=== PATIENT | female | born 1960 | race Hispanic/Latino ===

== ENCOUNTER 2017-06-10 12:49 | Outpatient (CLI) | payer BC ==
--- NOTE | 2017-06-10 13:25 | Mammography Report ---
Bilateral mammogram: Compared to 03/12/16. CAD study utilized. Findings: Predominance of adipose tissue bilaterally. Benign calcification right breast. Benign density left breast. Benign axillary nodes Impression: Benign findings. Annual followup recommended. BI-RADS CATEGORY: 2 = Benign ACR BI-RADS MAMMOGRAPHIC CODES: 0 = Needs additional imaging evaluation; 1 = Negative; 2 = Benign; 3 = Probably benign; 4 = Suspicious; 5 = Malignant; 6 = Known biopsy-proven malignancy COMMENT: 1. Dense breast tissue, i.e., adenosis, fibrocystic changes, etc., may obscure an underlying neoplasm. 2. Approximately 10% of cancers are not detected with mammography. 3. A negative mammography report should not delay biopsy if a clinically suspicious mass is present. BI-RADS CATEGORY: 2 = Benign ACR BI-RADS MAMMOGRAPHIC CODES: 0 = Needs additional imaging evaluation; 1 = Negative; 2 = Benign; 3 = Probably benign; 4 = Suspicious; 5 = Malignant; 6 = Known biopsy-proven malignancy COMMENT: 1. Dense breast tissue, i.e., adenosis, fibrocystic changes, etc., may obscure an underlying neoplasm. 2. Approximately 10% of cancers are not detected with mammography. 3. A negative mammography report should not delay biopsy if a clinically suspicious mass is present.
== END 2017-06-10 12:50 | disposition home or self-care (01) ==
LOC: MAMMO 12:49
PROVIDERS: ATTEND Family Medicine
DX: Z12.31 Encounter for screening mammogram for malignant neoplasm of breast (principal); I10 Essential (primary) hypertension; E03.9 Hypothyroidism, unspecified; F32.9 Major depressive disorder, single episode, unspecified
CPT/HCPCS: 77067; G0202

== ENCOUNTER 2019-03-17 08:29 | Outpatient (CLI) | payer BC ==
--- NOTE | 2019-03-18 09:48 | Fluoroscopy Report ---
UPPER GI SERIES WITH AIR-CONTRAST HISTORY: Epigastric pain, difficulty swallowing, lap band placement approximately 5-6 years ago. COMPARISON: No relevant comparisons at this facility. FINDINGS: Wireless Sales Manager film of the abdomen demonstrates an unremarkable intestinal gas pattern. Cholecystectomy changes are noted. A LAP band is identified in the left upper quadrant which appears in good position with phi angle measuring approximately 50 degrees. 72 fluoroscopic images were captured during this exam. Deglutition was normal. No evidence for aspiration. The esophagus was mildly dilated throughout this examination. There is no evidence for esophageal mass, stricture or mucosal defect. Delayed esophageal emptying was also noted throughout this exam. There appears to be slow transit of the oral contrast across the lap band device. No obvious slippage of the lap band is appreciated. There is eventual filling of the gastric cavity and proximal small bowel loops which are unremarkable. No gastric mass or mucosal defect. The duodenal bulb and duodenal sweep are unremarkable. IMPRESSION: In my opinion, the lap band appears to be too tight. The esophagus was mildly dilated throughout this exam with delayed emptying. No obvious LAP band slippage is appreciated.
== END 2019-03-17 08:30 | disposition home or self-care (01) ==
LOC: FLUORO 08:29
PROVIDERS: ATTEND Specialist
DX: K21.9 Gastro-esophageal reflux disease without esophagitis (principal); K30 Functional dyspepsia; I10 Essential (primary) hypertension; M19.90 Unspecified osteoarthritis, unspecified site; E03.9 Hypothyroidism, unspecified
CPT/HCPCS: 74247

== ENCOUNTER 2019-03-25 12:14 | Outpatient (CLI) | payer BC ==
[2019-03-25 12:37] LABS: Hematocrit 36.8 % (30.3-42.9); Hemoglobin 12.5 gm/dl (10.1-14.3); Mean Corpuscular HGB Conc 34 % (30-34); Mean Corpuscular Volume 84 fl (79-97); Platelet Count 265 K/mm3 (140-440); Red Blood Count 4.37 M/mm3 (3.65-5.03); Red Cell Distribution Width 14.8 % (13.2-15.2)
[2019-03-25 12:55] LABS: Alanine Aminotransferase 22 units/L (7-56); Albumin 4.5 g/dL (3.9-5); BUN/Creatinine Ratio 16; Blood Urea Nitrogen 13 mg/dL (7-17); Calcium 9.3 mg/dL (8.4-10.2); Chol/HDL Ratio 3.62 %; HDL Cholesterol 66 mg/dL (40-59); Hemolysis Index 3; LDL Cholesterol,Direct 186 mg/dL (50-130)
[2019-03-25 13:50] LABS: Free T4 (Free Thyroxine) 1.15 ng/dL (0.76-1.46)
== END 2019-03-25 12:15 | disposition home or self-care (01) ==
LOC: LAB 12:14
PROVIDERS: ATTEND Nurse Practitioner Family
DX: Z01.818 Encounter for other preprocedural examination (principal); K21.9 Gastro-esophageal reflux disease without esophagitis; E03.9 Hypothyroidism, unspecified; Z90.710 Acquired absence of both cervix and uterus
CPT/HCPCS: 36415; 80053; 80061; 84439; 84443; 85027

== ENCOUNTER → 2019-04-01 | Outpatient (CLI) | payer BC | END | disposition home or self-care (01) | LOC: SLR 11:00 | PROVIDERS: ATTEND Otolaryngology | DX: G47.33 Obstructive sleep apnea (adult) (pediatric) (principal); R40.0 Somnolence; R06.83 Snoring; I10 Essential (primary) hypertension; K21.9 Gastro-esophageal reflux disease without esophagitis; E03.9 Hypothyroidism, unspecified; Z90.710 Acquired absence of both cervix and uterus | CPT/HCPCS: 95810 ==

== ENCOUNTER → 2019-04-15 | Outpatient (CLI) | payer BC | END | disposition home or self-care (01) | LOC: SLR 11:00 | PROVIDERS: ATTEND Otolaryngology | DX: G47.33 Obstructive sleep apnea (adult) (pediatric) (principal); R40.0 Somnolence; E66.9 Obesity, unspecified; I10 Essential (primary) hypertension; K21.9 Gastro-esophageal reflux disease without esophagitis; E03.9 Hypothyroidism, unspecified; Z90.710 Acquired absence of both cervix and uterus | CPT/HCPCS: 95811 ==

== ENCOUNTER 2019-06-01 06:25 | Day surgery (SDC) | payer BC ==
[2019-06-01] MEDS ORDERED: NACL 0.9% 1000 ML 1,000 ML IV SCH (08:00)
[2019-06-01] MEDS ORDERED: XYLOCAINE 1% 20 mL ONE (08:38)
[2019-06-01] MEDS ORDERED: DIPRIVAN 10 MG/ML IV ONE (08:38)
[2019-06-01] MEDS ORDERED: VERSED IV ONE (08:38)
--- NOTE | 2019-06-01 08:43 | Anesthesia Day of Surgery ---
Anesthesia Day of Surgery - Day of Surgery Patient Examined: Yes Patient H&P Reviewed: Yes Patient is NPO: Yes
--- NOTE | 2019-06-01 08:45 | Anesthesia Consultation ---
Anesthesia Consult and Med Hx Date of service: 06/01/19 - Airway Anesthetic Teeth Evaluation: Good ROM Head & Neck: Adequate Mental/Hyoid Distance: Adequate Mallampati Class: Class III Intubation Access Assessment: Possibly Difficult - Pre-Operative Health Status ASA Pre-Surgery Classification: ASA3 Proposed Anesthetic Plan: MAC - Pulmonary Hx Smoking: No Hx Sleep Apnea: Yes - Cardiovascular System Hx Hypertension: Yes Hx Coronary Artery Disease: No Hx Heart Attack/AMI: No Hx Angina: No Hx Cardia Arrhythmia: No Hx Heart Murmur: No - Central Nervous System Hx Seizures: No CVA: No Hx Psychiatric Problems: Yes (Depression) - Gastrointestinal Hx Gastroesophageal Reflux Disease: Yes (moderate) - Endocrine Hx Renal Disease: No Hx Liver Disease: No Hx Non-Insulin Dependent Diabetes: No Hx Hypothyroidism: Yes - Other Systems Hx Alcohol Use: Yes (1-2 MIXED DRINKS PER MONTH) Hx Cancer: No Hx Obesity: Yes (BMI 35)
[2019-06-01 09:51] VITALS: BP 128/75
--- NOTE | 2019-06-01 14:37 | Operative Report ---
SURGEON: Quique Perdue M.D. SENIOR TELECOMMUNICATIONS CONSULTANT: Shaym Batista M.D. PREOPERATIVE DIAGNOSES: 1. Nausea and vomiting. 2. Reflux. 3. Status post lap band. POSTOPERATIVE DIAGNOSES: 1. Bilious reflux. 2. Abnormal duodenal mucosa. PROCEDURE: EGD with biopsies. ANESTHESIA: MAC. COMPLICATIONS: None. BLEEDING: Minimal. SPECIMENS: Duodenal biopsies. INDICATIONS: The patient is a 58-year-old female who underwent a lap band placement several years ago. She has recently developed nausea, vomiting, inability to eat certain foods as well as reflux. She is here for a preoperative endoscopy. She wishes for removal of the band with consideration to conversion to sleeve. Informed consent was obtained. DESCRIPTION OF PROCEDURE: The patient was brought to the GI suite where she was placed in the left lateral decubitus position and underwent MAC anesthesia. A bite block was placed, and a timeout was called. A standard adult gastroscope was inserted into the oropharynx down the esophagus. I was able pass the GE junction and the band with minimal difficulty. On inspection of the stomach, it appeared normal, however, she had bilious reflux present. On retroflexion view, the band was in appropriate position. There were no erosions, no ulcers, no lesions. On intubation of the pylorus, I noted the duodenal mucosa looked abnormal, had a slightly atrophic appearance, was bathed in a milky fluid all the way up to the level of the second portion of the duodenum. Random duodenal biopsies were taken for pathology. With no other abnormalities, the air was suctioned out. The gastroscope was removed. The patient tolerated the procedure with no immediate complications and was transferred to the PACU in stable condition. [facility]# [id number] ERICA/PHILL RYAN
== END 2019-06-01 06:26 | disposition home or self-care (01) ==
LOC: GIO 06:25
PROVIDERS: ATTEND Specialist
DX: K31.89 Other diseases of stomach and duodenum (principal); K95.09 Other complications of gastric band procedure; K21.9 Gastro-esophageal reflux disease without esophagitis; R10.13 Epigastric pain; I10 Essential (primary) hypertension; F32.9 Major depressive disorder, single episode, unspecified; E66.9 Obesity, unspecified; G47.30 Sleep apnea, unspecified; E03.9 Hypothyroidism, unspecified; M19.90 Unspecified osteoarthritis, unspecified site; Z88.1 Allergy status to other antibiotic agents; Z88.0 Allergy status to penicillin; Z79.899 Other long term (current) drug therapy; Z90.49 Acquired absence of other specified parts of digestive tract; Z72.89 Other problems related to lifestyle; Z68.35 Body mass index [BMI] 35.0-35.9, adult; Z98.890 Other specified postprocedural states; Z98.891 History of uterine scar from previous surgery; Z90.710 Acquired absence of both cervix and uterus
CPT/HCPCS: 43239; 88305; J2250; J2704; J7030

== ENCOUNTER 2019-09-15 12:36 | Outpatient (CLI) | payer BC ==
--- NOTE | 2019-09-16 14:12 | Mammography Report ---
DIGITAL SCREENING MAMMOGRAM WITH CAD, 09/15/2019 INDICATION: Routine screening mammography. History of bilateral reduction mammoplasty. TECHNIQUE: Digital bilateral 2D mammography was obtained in the craniocaudal and mediolateral obliq ue projections. This examination was interpreted with the benefit of Computer-Aided Detection analysi s. COMPARISON: 09/14/2018 FINDINGS: Breast Density: The breasts are almost entirely fatty. There is no evidence of dominant mass, suspicious calcifications or architectural distortion in eithe r breast. A calcified oil cyst at 12:00 right breast approximately 9 cm from the nipple. There is adj acent surgical clip. IMPRESSION: No mammographic evidence of malignancy. Follow up recommendation: Routine yearly BI-RADS Category 2: Benign. A "normal" or negative report should not discourage follow up or biopsy of a clinically significant f inding. A written summary of these findings will be mailed to the patient. The patient will be entered into a mammography reporting system which will generate a reminder letter for the patient's next appointmen t at the appropriate interval. The [employer] recommends yearly mammograms starting at age 40 and continuing as l jacqueline as a woman is in good health. Breast MRI is recommended for women with an approximate 20-25% or greater lifetime risk of breast cancer, including women with a strong family history of breast or ova fabiola cancer or who have been treated for Hodgkin's disease. Signer Name: Kyler Zhao MD Signed: 09/16/2019 2:08 PM Workstation Name: [id number]
== END 2019-09-15 12:37 | disposition home or self-care (01) ==
LOC: MAMMO 12:36
PROVIDERS: ATTEND Family Medicine
DX: Z12.31 Encounter for screening mammogram for malignant neoplasm of breast (principal); I10 Essential (primary) hypertension; K21.9 Gastro-esophageal reflux disease without esophagitis; E03.9 Hypothyroidism, unspecified; Z90.710 Acquired absence of both cervix and uterus
CPT/HCPCS: 77067

== ENCOUNTER 2019-10-19 05:56 | Inpatient (IN) | payer BC ==
[2019-10-13 12:58] LABS: Basophils # (Auto) 0.1 K/mm3 (0.0-0.1); Basophils % (Auto) 0.8 % (0.0-1.8); Eosinophils # (Auto) 0.1 K/mm3 (0.0-0.4); Hematocrit 35.8 % (30.3-42.9); Hemoglobin 12.1 gm/dl (10.1-14.3); Lymphocytes # (Auto) 1.8 K/mm3 (1.2-5.4); Lymphocytes % (Auto) 19.8 % (13.4-35.0); Mean Corpuscular HGB Conc 34 % (30-34); Mean Corpuscular Volume 84 fl (79-97); Monocytes # (Auto) 0.5 K/mm3 (0.0-0.8); Monocytes % (Auto) 5.9 % (0.0-7.3); Platelet Count 300 K/mm3 (140-440); Red Blood Count 4.26 M/mm3 (3.65-5.03); Red Cell Distribution Width 14.4 % (13.2-15.2)
[2019-10-13 13:16] LABS: Alanine Aminotransferase 25 units/L (7-56); Albumin 4.9 g/dL (3.9-5); BUN/Creatinine Ratio 37; Blood Urea Nitrogen 26 mg/dL (7-17); Calcium 10.2 mg/dL (8.4-10.2); Chol/HDL Ratio 3.68 %; HDL Cholesterol 66 mg/dL (40-59); Hemolysis Index 11; LDL Cholesterol,Direct 155 mg/dL (50-130)
[~2019-10-19 05:56] MED LIST: BACTERIOSTATIC SODIUM CHLORIDE 0.9% 30 ML VIAL INFILTRATI ONE; ceFAZolin/Water 2 GM/20 ML 2 GM/20 ML SYRINGE IV NR
[2019-10-19] MEDS ORDERED: ENOXAPARIN 40 MG/0.4 ML INJ SUB-Q NR (06:00)
[2019-10-19] MEDS ORDERED: LACTATED RINGERS 1,000 ML IV SCH (06:23)
[2019-10-19] MEDS ORDERED: MIDAZOLAM 2 MG/2 ML INJ IV ONE (06:32)
[2019-10-19] MEDS ORDERED: metroNIDAZOLE/NS 500 MG/100 ML 500 MG/100 ML BAG IV NR (07:00)
[2019-10-19] MEDS ORDERED: SCOPOLAMINE TRANSDERMAL PATCH 72 HR TD SCH (07:00)
[2019-10-19] MEDS ORDERED: CLINDAMYCIN 600 MG/50 mL 600 MG/50 ML BAG IV NR (07:00)
[2019-10-19] MEDS ORDERED: GENTAMICIN 40 MG/ML VIAL 2 ML IV SCH (07:00)
--- NOTE | 2019-10-19 07:04 | Anesthesia Day of Surgery ---
Anesthesia Day of Surgery - Day of Surgery Patient Examined: Yes Patient H&P Reviewed: Yes Patient is NPO: Yes
[2019-10-19] MEDS ORDERED: HYDROmorphone 1 MG/1 ML INJ IV PRN (07:05)
[2019-10-19] MEDS ORDERED: ONDANSETRON 4 MG/2 ML INJ IV PRN ×2 (07:05→09:14)
--- NOTE | 2019-10-19 07:05 | Anesthesia Consultation ---
Anesthesia Consult and Med Hx Date of service: 10/19/19 - Airway Anesthetic Teeth Evaluation: Good, Crowns ROM Head & Neck: Adequate Mental/Hyoid Distance: Adequate Mallampati Class: Class III Intubation Access Assessment: Possibly Difficult - Pre-Operative Health Status ASA Pre-Surgery Classification: ASA3 Proposed Anesthetic Plan: General - Pulmonary Hx Smoking: No Hx Sleep Apnea: Yes - Cardiovascular System Hx Hypertension: Yes (1997 (21 YRS)) Hx Coronary Artery Disease: No Hx Heart Attack/AMI: No Hx Angina: No Hx Cardia Arrhythmia: No Hx Heart Murmur: No - Central Nervous System Hx Psychiatric Problems: Yes - Gastrointestinal Hx Gastroesophageal Reflux Disease: Yes (moderate) - Endocrine Hx Renal Disease: No Hx Liver Disease: No Hx Non-Insulin Dependent Diabetes: No Hx Hypothyroidism: Yes - Other Systems Hx Alcohol Use: Yes (OCCA) Hx Substance Use: No Hx Cancer: No Hx Obesity: Yes
[2019-10-19] MEDS ORDERED: PROPOFOL 200 MG/20 ML VIAL IV ONE (07:09)
[2019-10-19] MEDS ORDERED: LIDOCAINE MPF (2%) 20 MG/1 ML VIAL 5 ML ONE (07:09)
[2019-10-19] MEDS ORDERED: ROCURONIUM 50 MG/5 ML INJ IV ONE (07:10)
[2019-10-19] MEDS ORDERED: BUPIVACAINE-EPINEPHRINE/PF 0.5%-1:200,000 (30 ML) VIAL INFILTRATI ONE ×2 (07:17→08:16)
[2019-10-19] MEDS ORDERED: LIDOCAINE (1%) 10 MG/1 ML VIAL 20 ML MDV ONE (07:17)
[2019-10-19] MEDS ORDERED: ePHEDrine SULFATE 50 MG/1 ML INJ ONE (07:48)
[2019-10-19] MEDS ORDERED: GENTAMICIN/NS 120MG/100ML 120 MG/100 ML BAG IV NR (08:00)
[2019-10-19] MEDS ORDERED: LIDOCAINE (1%) 10 MG/1 ML VIAL 20 ML MDV INFILTRATI ONE (08:16)
[2019-10-19] MEDS ORDERED: SODIUM CHLORIDE 0.9% IRRIG SOLN 2000 ML IR ONE (08:17)
[2019-10-19] MEDS ORDERED: SODIUM CHLORIDE 0.9% IRR 1,500 ML BOTTLE IR ONE (08:17)
[2019-10-19] MEDS ORDERED: ONDANSETRON 4 MG/2 ML INJ ONE (09:05)
[2019-10-19] MEDS ORDERED: KETOROLAC 30 MG/1 ML INJ ONE (09:05)
[2019-10-19] MEDS ORDERED: GLYCOPYRROLATE 0.4 MG/2 ML INJ ONE (09:06)
[2019-10-19] MEDS ORDERED: NEOSTIGMINE 10MG/10 ML INJ MDV ONE (09:06)
[2019-10-19] MEDS ORDERED: METOCLOPRAMIDE 10 MG/2 ML INJ IV PRN (09:14)
[2019-10-19] MEDS ORDERED: MORPHINE 2 MG/1 ML INJ IV PRN (09:14)
[2019-10-19] MEDS ORDERED: hydrALAZINE 20 MG/1 ML INJ IV PRN (09:14)
[2019-10-19] MEDS ORDERED: SIMETHICONE 80 MG CHEW TAB PO PRN (09:14)
[2019-10-19] MEDS ORDERED: HYDROcodone/APAP 7.5-325MG-15ML ORAL LIQD PO PRN (09:14)
[2019-10-19] MEDS: KETOROLAC 30 MG/1 ML INJ IV SCH ×2 (12:01→18:19)
--- NOTE | 2019-10-19 13:50 | Post Anesthesia Evaluation ---
- Post Anesthesia Evaluation Patient Participated: Yes Airway Patent: Yes Stable Respiratory Function: Yes Nausea/Vomiting: No Temp > 96.8F: Yes Pain Manageable: Yes Adequeate Hydration: Yes Anesthesia Complications: No Block Receding Appropriately: Not Applicable Patient on Ventilator: No
[2019-10-19] MEDS: LACTATED RINGERS 1,000 ML IV SCH (16:58)
[2019-10-19] MEDS: HYDROmorphone 1 MG/1 ML INJ IV PRN (20:28)
[2019-10-20] MEDS: KETOROLAC 30 MG/1 ML INJ IV SCH ×2 (00:38→05:57)
[2019-10-20] MEDS: LACTATED RINGERS 1,000 ML IV SCH ×2 (00:41→09:20)
[2019-10-20 03:31] LABS: Bacteria,Urine 1+ /HPF (Negative); Bilirubin,Urine NEG (Negative); Blood,Urine MOD (Negative); Color,Urine Yellow (Yellow); Mucus,Urine 2+ /HPF; Protein,Urine <15 mg/dL mg/dL (Negative); RBC,Urine < 1.0 /HPF (0.0-6.0); Urobilinogen,Urine < 2.0 mg/dL (<2.0)
[2019-10-20] MEDS: HYDROmorphone 1 MG/1 ML INJ IV PRN (03:51)
[2019-10-20 08:16] VITALS: BP 105/62
--- NOTE | 2019-10-20 09:26 | Discharge Summary ---
Providers - Providers Date of Admission: 10/19/19 05:56 Date of discharge: 10/20/19 Attending physician: SUZANNA JAQUEZ 10/19/19 09:14 Physical Therapy Evaluation and Treat [CONS] Routine Comment: Reason For Exam: To walk Primary care physician: JOSH BARAHONA Hospitalization Condition: Good Pertinent studies: None Procedures: Lap removal of Lap band and convert to sleeve gastrectomy Disposition: DC-01 TO HOME OR SELFCARE - Discharge Diagnoses (1) Dyspepsia Status: Acute (2) GERD (gastroesophageal reflux disease) Status: Acute (3) Morbid obesity Status: Acute (4) Morbid obesity Status: Acute Core Measure Documentation - Palliative Care Palliative Care/ Comfort Measures: Not Applicable - Core Measures Any of the following diagnoses?: none Exam - Constitutional Vitals: Temp Pulse Resp BP Pulse Ox 97.3 F L 81 18 105/62 95 10/20/19 07:40 10/20/19 07:40 10/20/19 07:40 10/20/19 07:40 10/20/19 07:40 General appearance: Present: no acute distress, well-nourished - EENT Eyes: Present: PERRL, EOM intact ENT: hearing intact, clear oral mucosa, dentition normal - Neck Neck: Present: supple, normal ROM - Respiratory Respiratory effort: normal Respiratory: bilateral: CTA - Cardiovascular Rhythm: regular - Extremities Extremities: no ischemia, pulses intact, pulses symmetrical, No edema, normal temperature, normal color, Full ROM Peripheral Pulses: within normal limits - Abdominal General gastrointestinal: Present: soft, non-tender, normal bowel sounds Female genitourinary: Present: normal - Integumentary Integumentary: Present: clear, warm - Musculoskeletal Musculoskeletal: strength equal bilaterally - Psychiatric Psychiatric: appropriate mood/affect Plan Activity: no restrictions Diet: other Wound: keep clean and dry Follow up with: JOSH BARAHONA MD [Primary Care Provider] - 7 Days SUZANNA JAQUEZ MD [Staff Physician] - 14 Days
[2019-10-20] MEDS ORDERED: ENOXAPARIN 40 MG/0.4 ML INJ SUB-Q SCH (10:00)
[2019-10-20 10:42] LABS: Basophils % (Auto) 0.2 % (0.0-1.8); Hematocrit 31.3 % (30.3-42.9); Hemoglobin 10.4 gm/dl (10.1-14.3); Lymphocytes # (Auto) 0.9 K/mm3 (1.2-5.4); Lymphocytes % (Auto) 7.1 % (13.4-35.0); Mean Corpuscular HGB Conc 33 % (30-34); Mean Corpuscular Volume 85 fl (79-97); Monocytes # (Auto) 0.5 K/mm3 (0.0-0.8); Monocytes % (Auto) 3.9 % (0.0-7.3); Platelet Count 204 K/mm3 (140-440); Red Blood Count 3.68 M/mm3 (3.65-5.03); Red Cell Distribution Width 14.7 % (13.2-15.2)
[2019-10-20 11:00] LABS: Alanine Aminotransferase 45 units/L (7-56); Albumin 3.5 g/dL (3.9-5); BUN/Creatinine Ratio 16; Blood Urea Nitrogen 13 mg/dL (7-17); Calcium 8.1 mg/dL (8.4-10.2); Hemolysis Index 2
== END 2019-10-20 10:40 | disposition home or self-care (01) | DRG 621 ==
LOC: 3A 05:56 → EEVIPCON 05:56 → 3B-SURG 10:17
PROVIDERS: ADMIT Specialist; ATTEND Specialist
PROC: 0DP64CZ Removal of Extraluminal Device from Stomach, Percutaneous Endoscopic Approach (ICD-10-PCS; principal; 2019-10-19)
PROC: 0DB64Z3 Excision of Stomach, Percutaneous Endoscopic Approach, Vertical (ICD-10-PCS; 2019-10-19)
DX: E66.01 Morbid (severe) obesity due to excess calories (principal); K21.9 Gastro-esophageal reflux disease without esophagitis; G47.39 Other sleep apnea; I10 Essential (primary) hypertension; E03.9 Hypothyroidism, unspecified; Z68.33 Body mass index [BMI] 33.0-33.9, adult
CPT/HCPCS: 36415; 80053; 80061; 81001; 84443; 85025; 87086; 88302; 88307; G0378; A4217; J1170; J1580; J1650; J1885; J2250; J2270; J2405; J2704; J2710; J2765; J7120

== ENCOUNTER 2019-12-29 09:55 | Outpatient (CLI) | payer BC ==
[2019-12-29 10:24] LABS: Basophils % (Auto) 0.8 % (0.0-1.8); Eosinophils # (Auto) 0.1 K/mm3 (0.0-0.4); Eosinophils % (Auto) 1.9 % (0.0-4.3); Hematocrit 37.2 % (30.3-42.9); Hemoglobin 12.4 gm/dl (10.1-14.3); Lymphocytes # (Auto) 1.8 K/mm3 (1.2-5.4); Mean Corpuscular HGB Conc 33 % (30-34); Mean Corpuscular Volume 85 fl (79-97); Monocytes # (Auto) 0.4 K/mm3 (0.0-0.8); Monocytes % (Auto) 7.3 % (0.0-7.3); Platelet Count 219 K/mm3 (140-440); Red Blood Count 4.36 M/mm3 (3.65-5.03); Red Cell Distribution Width 15.4 % (13.2-15.2)
[2019-12-29 10:48] LABS: Alanine Aminotransferase 19 units/L (7-56); Albumin 4.2 g/dL (3.9-5); BUN/Creatinine Ratio 23; Blood Urea Nitrogen 14 mg/dL (7-17); Calcium 9.7 mg/dL (8.4-10.2); Hemolysis Index 16; LDL Cholesterol,Direct 106 mg/dL (50-130)
[2019-12-29 10:59] LABS: Chol/HDL Ratio 2.84 %; HDL Cholesterol 59 mg/dL (40-59)
== END 2019-12-29 09:56 | disposition home or self-care (01) ==
LOC: LAB 09:55
PROVIDERS: ATTEND Internal Medicine
DX: K57.90 Diverticulosis of intestine, part unspecified, without perforation or abscess without bleeding (principal)
CPT/HCPCS: 36415; 80053; 80061; 85025

== ENCOUNTER 2020-01-14 13:03 | Outpatient (CLI) | payer BC ==
--- NOTE | 2020-01-14 14:21 | Cat Scan Report ---
CT ABDOMEN AND PELVIS WITHOUT IV CONTRAST INDICATION: URINARY TRACT INFECTION, MICROSCOPIC HEMATURIA. COMPARISON: None available. TECHNIQUE: All CT scans at this facility use dose modulation, automated exposure control, iterative reconstructi on or weight based dosing, when appropriate, to reduce radiation dose to as low as reasonably achieva ble. FINDINGS: Lung Bases: No significant abnormality. Skeletal System: No acute abnormality. ABDOMEN: Liver: No significant abnormality. Gallbladder: Removed. Bile Ducts: No significant abnormality. Pancreas: No significant abnormality. Spleen: No significant abnormality. Adrenals: No significant abnormality. Right Kidney: No significant abnormality. Left Kidney: No significant abnormality. Upper GI tract: Postsurgical changes are noted at the stomach. The upper GI tract is otherwise unrema rkable. Lymph Nodes: No significant adenopathy. Aorta: No significant abnormality. Additional Findings: No significant abnormality. PELVIS: Colon: No acute abnormality. Diverticulosis is noted. Urinary Bladder and Distal Ureters: No significant abnormality. Appendix: No significant abnormality. Lymph Nodes: No significant adenopathy. Additional Findings: None. IMPRESSION: 1. No cause for the patient's hematuria is seen. No acute findings. 2. Incidental findings, as above. Signer Name: Arsalan Meza MD Signed: 01/14/2020 2:17 PM Workstation Name: [id number]
== END 2020-01-14 13:04 | disposition home or self-care (01) ==
LOC: CT 13:03
PROVIDERS: ATTEND Urology
DX: N39.0 Urinary tract infection, site not specified (principal); R31.29 Other microscopic hematuria; Z90.49 Acquired absence of other specified parts of digestive tract
CPT/HCPCS: 74176

== ENCOUNTER 2020-02-11 06:02 | Day surgery (SDC) | payer BC ==
[~2020-02-11 06:02] MED LIST changes: -BACTERIOSTATIC SODIUM CHLORIDE 0.9% 30 ML VIAL INFILTRATI ONE; +LACTATED RINGERS 1,000 ML IV SCH; -ceFAZolin/Water 2 GM/20 ML 2 GM/20 ML SYRINGE IV NR
[2020-02-11] MEDS ORDERED: BACTERIOSTATIC SODIUM CHLORIDE 0.9% 30 ML VIAL INFILTRATI ONE (06:09)
--- NOTE | 2020-02-11 07:10 | Anesthesia Day of Surgery ---
Anesthesia Day of Surgery - Day of Surgery Patient Examined: Yes Patient H&P Reviewed: Yes Patient is NPO: Yes
--- NOTE | 2020-02-11 07:13 | Anesthesia Consultation ---
Anesthesia Consult and Med Hx Date of service: 02/11/20 - Airway Anesthetic Teeth Evaluation: Good, Crowns ROM Head & Neck: Adequate Mental/Hyoid Distance: Adequate Mallampati Class: Class IV Intubation Access Assessment: Possibly Difficult - Pre-Operative Health Status ASA Pre-Surgery Classification: ASA3 Proposed Anesthetic Plan: General - Pulmonary Hx Smoking: No Hx Sleep Apnea: Yes (DX SLEEP APNEA WITH CPAP USE.) - Cardiovascular System Hx Hypertension: Yes (1998. States she can climb two flights of stairs) Hx Coronary Artery Disease: No Hx Heart Attack/AMI: No Hx Angina: No Hx Cardia Arrhythmia: No Hx Heart Murmur: No - Central Nervous System Hx Seizures: No CVA: No Hx Psychiatric Problems: Yes (Depression) - Gastrointestinal Hx Gastroesophageal Reflux Disease: Yes (moderate) - Endocrine Hx Renal Disease: No Hx Liver Disease: No Hx Non-Insulin Dependent Diabetes: No Hx Thyroid Disease: Yes Hx Hypothyroidism: Yes (ON DAILY MEDS) - Other Systems Hx Cancer: No Hx Obesity: Yes (BMI 35) - Additional Comments Anesthesia Medical History Comments: Was here Oct 2019
[2020-02-11] MEDS ORDERED: fentaNYL 100 MCG/2 ML INJ IV PRN (07:15)
[2020-02-11] MEDS ORDERED: ONDANSETRON 4 MG/2 ML INJ IV PRN (07:15)
[2020-02-11] MEDS ORDERED: LIDOCAINE MPF (2%) 20 MG/1 ML VIAL 5 ML ONE (07:16)
[2020-02-11] MEDS ORDERED: propofoL 200 MG/20 ML VIAL IV ONE (07:16)
[2020-02-11] MEDS ORDERED: HYDROmorphone 1 MG/1 ML INJ ONE (07:16)
[2020-02-11] MEDS ORDERED: WATER FOR IRRIG STERILE 2000 ML IR ONE (08:00)
--- NOTE | 2020-02-11 08:10 | Short Stay Summary ---
Short Stay Documentation Date of service: 02/11/20 Narrative H&P: 59 yr old female with recurrent UTI & microhematuria - History Past Surgical History: cholecystectomy, , hysterectomy, Other (gastric sleeve) Social history: no significant social history - Allergies and Medications Current Medications: Allergies azithromycin Allergy (Verified 10/13/19 09:50) Tongue Swelling doxycycline Allergy (Verified 10/13/19 09:50) Tongue Swelling Penicillins Allergy (Verified 10/13/19 09:50) Unknown Home Medications Medication Instructions Recorded Confirmed Last Taken Type FLUoxetine HCL [Fluoxetine HCl] 40 mg PO DAILY 09/08/13 01/31/20 02/10/20 History Levothyroxine [Synthroid] 100 mcg PO DAILY 09/08/13 01/31/20 02/10/20 History Lisinopril/Hydrochlorothiazide 1 tab PO DAILY 09/08/13 01/31/20 02/10/20 History [Lisinopril-Hctz 10-12.5 mg Tab] Meloxicam [Mobic] 15 mg PO DAILY 08/19/16 02/11/20 02/05/20 History Omeprazole Magnesium [PriLOSEC Otc] 20 mg PO QDAY 08/19/16 02/11/20 02/10/20 History Oxybutynin Chloride [Ditropan Xl] 15 mg PO QDAY 10/13/19 01/31/20 02/10/20 History Active Medications Fentanyl (Sublimaze) 50 mcg IV Q5MIN PRN PRN Reason: Pain , Severe (7-10) Lactated Ringer's (Lactated Ringers) 1,000 mls @ 100 mls/hr IV DIRECT BRYAN Levofloxacin/Dextrose (Levaquin 500mg/100ml) 500 mg in 100 mls @ 100 mls/hr IV PREOP NR; Protocol Stop: 02/11/20 08:59 Ondansetron HCl (Zofran) 4 mg IV ONCE PRN PRN Reason: Nausea And Vomiting - Physical exam General appearance: no acute distress, well-nourished Integumentary: no rash, no growths HEENT: Atraumatic, PERRLA Lungs: Clear to auscultation Heart: Regular rate, No murmurs Gastrointestinal: normal Extremities: no ischemia - Brief post op/procedure progress note Date of procedure: 02/11/20 Pre-op diagnosis: microhematuria, UTI Post-op diagnosis: same Procedure: cysto, rpg, urethral dilation Anesthesia: CASSIE Surgeon: RAJ DE LA O Estimated blood loss: none Pathology: none Condition: stable - Hospital course Hospital course: ultram & cipro on chart - Disposition Condition at discharge: Stable Short Stay Discharge Plan Follow up with: MARCO NIETO MD [Primary Care Provider] - 7 Days
--- NOTE | 2020-02-11 08:23 | Operative Report ---
PREOPERATIVE DIAGNOSES: Recurrent urinary tract infection and microscopic hematuria. POSTOPERATIVE DIAGNOSES: Recurrent urinary tract infection and microscopic hematuria. PROCEDURE: Cystoscopy, bilateral retrograde pyelograms, urethral dilatation. SURGEON: Ben Olson MD ANESTHESIA: General. ESTIMATED BLOOD LOSS: Minimal. FLUIDS: Crystalloid. COMPLICATIONS: No complications. INDICATIONS: This is a 59-year-old female seen in the office with recurrent urinary tract infection and microscopic hematuria. She also gives a history of x2, hysterectomy, possibly passed a kidney stone [address] of abdomen and pelvis was unremarkable. She also gives a history of recent gastric sleeve surgery. She presents now for endoscopic evaluation. DESCRIPTION OF PROCEDURE: The patient was taken to the operative suite, placed in a supine position. After adequate general anesthesia, placed in a dorsal lithotomy position, prepped and draped in a sterile fashion. Pancystourethroscopy was performed with a 22-[place] Storz cystoscope, no acute bladder pathology. Both ureteral orifices in normal position. No tumors or stones were noted. Bilateral retrograde pyelograms were obtained with an 8-[place] Timblin catheter and 8 mL of contrast. No filling defects or obstruction. Due to her previous surgery, to ensure complete bladder emptying, urethral dilatation to 26-U[place]ayan was performed. Bladder was drained. The patient tolerated the procedure well. She was extubated and taken to recovery room. She will go home on Cipro and Ultram and followup. JOB# [id number] Abby/PHILL
[2020-02-11 09:05] VITALS: BP 115/76
--- NOTE | 2020-02-14 16:16 | Fluoroscopy Report ---
. 4 fluoroscopic images submitted Indication: Intraoperative localization Impression: 4 images of the abdomen were submitted for documentation purposes with radiology involve ment. Bilateral retrograde pyelograms were done using 10 mL of Omnipaque 300. Please refer to operat sai for complete details. Fluoroscopic time: 9 seconds Signer Name: Brant Hart MD Signed: 02/14/2020 4:12 PM Workstation Name: [id number]
== END 2020-02-11 06:03 | disposition home or self-care (01) ==
LOC: OR 06:02
PROVIDERS: ATTEND Urology
DX: N39.0 Urinary tract infection, site not specified (principal); R31.29 Other microscopic hematuria; K21.9 Gastro-esophageal reflux disease without esophagitis; E66.01 Morbid (severe) obesity due to excess calories; I10 Essential (primary) hypertension; G47.30 Sleep apnea, unspecified; M19.90 Unspecified osteoarthritis, unspecified site; F32.9 Major depressive disorder, single episode, unspecified; E03.9 Hypothyroidism, unspecified; Z79.899 Other long term (current) drug therapy; Z88.0 Allergy status to penicillin; Z88.8 Allergy status to other drugs, medicaments and biological substances; Z68.29 Body mass index [BMI] 29.0-29.9, adult; Z98.41 Cataract extraction status, right eye; Z98.42 Cataract extraction status, left eye; Z90.49 Acquired absence of other specified parts of digestive tract; Z98.890 Other specified postprocedural states; Z90.710 Acquired absence of both cervix and uterus; Z98.891 History of uterine scar from previous surgery
CPT/HCPCS: 36415; 52005; 74420; 84132; A4217; C1758; J1170; J1956; J2405; J2704; J7120; Q9967

== ENCOUNTER 2020-08-15 07:30 | Outpatient (CLI) | payer BC | END 2020-08-15 07:31 | disposition home or self-care (01) | LOC: LAB 07:30 | PROVIDERS: ATTEND Internal Medicine | DX: E03.9 Hypothyroidism, unspecified (principal) | CPT/HCPCS: 36415; 84443 ==

== ENCOUNTER 2020-09-14 06:39 | Outpatient (CLI) | payer BC ==
--- NOTE | 2020-09-14 17:13 | Mammography Report ---
DIGITAL SCREENING MAMMOGRAM WITH CAD, 09/14/2020 INDICATION: Routine screening mammography. TECHNIQUE: Digital bilateral 2D mammography was obtained in the craniocaudal and mediolateral obliq ue projections. This examination was interpreted with the benefit of Computer-Aided Detection analysi s. COMPARISON: 09/15/2019, 09/14/2018 FINDINGS: Breast Density: The breasts are almost entirely fatty. There is no evidence of dominant mass, suspicious calcifications or architectural distortion in eithe r breast. Stable post surgical/biopsy changes are seen in the o'clock position of the right breast wi th an adjacent stable coil cyst. IMPRESSION: Follow up recommendation: Routine yearly BI-RADS Category 2: Benign. A "normal" or negative report should not discourage follow up or biopsy of a clinically significant f inding. A written summary of these findings will be mailed to the patient. The patient will be entered into a mammography reporting system which will generate a reminder letter for the patient's next appointmen t at the appropriate interval. The [employer] recommends yearly mammograms starting at age 40 and continuing as l jacqueline as a woman is in good health. Breast MRI is recommended for women with an approximate 20-25% or greater lifetime risk of breast cancer, including women with a strong family history of breast or ova fabiola cancer or who have been treated for Hodgkin's disease. Signer Name: Surendra Whittington MD Signed: 09/14/2020 5:09 PM Workstation Name: [id number]
== END 2020-09-14 06:40 | disposition home or self-care (01) ==
LOC: MAMMO 06:39
PROVIDERS: ATTEND Internal Medicine
DX: Z12.31 Encounter for screening mammogram for malignant neoplasm of breast (principal); N60.01 Solitary cyst of right breast
CPT/HCPCS: 77067

== ENCOUNTER 2021-05-23 08:26 | Outpatient (CLI) | payer BC ==
[2021-05-23 09:04] LABS: Basophils # (Auto) 0.1 K/mm3 (0.0-0.1); Basophils % (Auto) 1.3 % (0.0-1.8); Eosinophils # (Auto) 0.1 K/mm3 (0.0-0.4); Eosinophils % (Auto) 1.8 % (0.0-4.3); Hematocrit 35.8 % (30.3-42.9); Hemoglobin 12.1 gm/dl (10.1-14.3); Lymphocytes # (Auto) 1.7 K/mm3 (1.2-5.4); Lymphocytes % (Auto) 28.4 % (13.4-35.0); Mean Corpuscular HGB Conc 34 % (30-34); Mean Corpuscular Volume 85 fl (79-97); Monocytes # (Auto) 0.5 K/mm3 (0.0-0.8); Monocytes % (Auto) 7.9 % (0.0-7.3); Platelet Count 250 K/mm3 (140-440); Red Blood Count 4.22 M/mm3 (3.65-5.03); Red Cell Distribution Width 14.1 % (13.2-15.2)
[2021-05-23 09:27] LABS: Alanine Aminotransferase 13 units/L (7-56); Albumin 4.6 g/dL (3.9-5); Blood Urea Nitrogen 15 mg/dL (7-17); Calcium 9.7 mg/dL (8.4-10.2); Chol/HDL Ratio 2.76 %; HDL Cholesterol 73 mg/dL (40-59); Hemolysis Index 0; LDL Cholesterol,Direct 135 mg/dL (50-130)
[2021-05-23 09:33] LABS: BUN/Creatinine Ratio 21
[2021-05-26 15:09] LABS: Vitamin D, 25-OH, D2 <4 ng/mL
== END 2021-05-23 08:27 | disposition home or self-care (01) ==
LOC: LAB 08:26
PROVIDERS: ATTEND Internal Medicine
DX: Z00.00 Encounter for general adult medical examination without abnormal findings (principal); Z13.1 Encounter for screening for diabetes mellitus; Z13.220 Encounter for screening for lipoid disorders; E03.9 Hypothyroidism, unspecified; E55.9 Vitamin D deficiency, unspecified
CPT/HCPCS: 36415; 80053; 80061; 82306; 83036; 84443; 85025

== ENCOUNTER 2021-09-27 10:27 | Outpatient (CLI) | payer BC ==
--- NOTE | 2021-10-01 08:16 | Mammography Report ---
DIGITAL SCREENING MAMMOGRAM WITH TOMOSYNTHESIS WITH CAD, 09/27/2021 CLINICAL INFORMATION / INDICATION: Routine Screening Mammography. TECHNIQUE: Digital bilateral 2D and 3D mammography with tomosynthesis was obtained in the craniocaud al and mediolateral oblique projections. Computer-Aided Detection (CAD) analysis was used for interp retation of this study. COMPARISON: 09/14/2020 FINDINGS: Breast Density: There are scattered areas of fibroglandular density. No dominant mass, suspicious calcifications, or architectural distortion in either breast. Biopsy clip and postoperative change again noted on the right. Largely unchanged nodular densities in the breasts, commonly fibroglandular or fibrocystic change. IMPRESSION: No mammographic evidence of malignancy. Follow up recommendation: Routine yearly BI-RADS Category 2: Benign. A "normal" or negative report should not discourage follow up or biopsy of a clinically significant f inding. A written summary of these findings will be mailed to the patient. The patient will be entered into a mammography reporting system which will generate a reminder letter for the patient's next appointmen t at the appropriate interval. The [employer] recommends yearly mammograms starting at age 40 and continuing as l jacqueline as a woman is in good health. Breast MRI is recommended for women with an approximate 20-25% or greater lifetime risk of breast cancer, including women with a strong family history of breast or ova fabiola cancer or who have been treated for Hodgkin's disease. Signer Name: Brant Hart MD Signed: 09/28/2021 3:03 PM Workstation Name: [id number]
== END 2021-09-27 10:28 | disposition home or self-care (01) ==
LOC: MAMMO 10:27
PROVIDERS: ATTEND Internal Medicine
DX: Z12.31 Encounter for screening mammogram for malignant neoplasm of breast (principal)
CPT/HCPCS: 77067

== ENCOUNTER 2021-12-26 16:03 | Outpatient (CLI) | payer BC ==
--- NOTE | 2021-12-26 16:37 | XRay Report ---
CHEST 2 VIEWS INDICATION / CLINICAL INFORMATION: COUGH. COMPARISON: None available. FINDINGS: SUPPORT DEVICES: None. HEART / MEDIASTINUM: No significant abnormality. LUNGS / PLEURA: No significant pulmonary or pleural abnormality. No pneumothorax. ADDITIONAL FINDINGS: No significant additional findings. IMPRESSION: 1. No acute findings. Signer Name: Vinay Rubi MD Signed: 12/26/2021 4:32 PM Workstation Name: [id number]
== END 2021-12-26 16:04 | disposition home or self-care (01) ==
LOC: XRAY 16:03
PROVIDERS: ATTEND Internal Medicine
DX: R05.9 Cough, unspecified (principal)
CPT/HCPCS: 71046

== ENCOUNTER 2022-01-10 12:03 | Outpatient (CLI) | payer BC ==
--- NOTE | 2022-01-10 14:01 | XRay Report ---
Right shoulder 3 views INDICATION: Right shoulder pain IMPRESSION: The right shoulder is osteopenic. No discrete fracture or subluxation is identified. Signer Name: Bhupendra Hess MD Signed: 01/10/2022 1:57 PM Workstation Name: [id number]
== END 2022-01-10 12:04 | disposition home or self-care (01) ==
LOC: XRAY 12:03
PROVIDERS: ATTEND Orthopaedic Surgery
DX: M25.511 Pain in right shoulder (principal)

== ENCOUNTER 2022-04-15 10:26 | Outpatient (CLI) | payer BC ==
--- NOTE | 2022-04-15 15:38 | Magnetic Resonance Report ---
. MRI RIGHT SHOULDER WITHOUT CONTRAST INDICATION: M75.41 M75.51 RT SHOULDER PAIN, LIMITED MOTION. COMPARISON: None available. TECHNIQUE: Multisequence, multiplanar images were obtained. FINDINGS: ACROMIOCLAVICULAR JOINT: No significant abnormality. ACROMION: Type I SUPRASPINATUS: Large chronic full-thickness tear involving entire width supraspinatus with retraction to glenohumeral joint. INFRASPINATUS: Full-thickness tear critical zone fibers anterior half infraspinatus coronal image 5. SUBSCAPULARIS: No significant abnormality. BICEPS TENDON, LONG HEAD: No significant abnormality. SUBACROMIAL/SUBDELTOID SPACE: Moderate amount of bursal fluid. GLENOID LABRUM: Degenerative SLAP tear superior labrum coronal image 9 ARTICULAR CARTILAGE: No significant abnormality. JOINT SPACE AND CAPSULE: No significant abnormality. BONES: No significant bone marrow edema. No fracture. No osseous lesion. SUBCUTANEOUS SOFT TISSUES: No significant abnormality. ADDITIONAL FINDINGS: None. IMPRESSION: 1. Chronic full-thickness tear involving entire width supraspinatus with retraction to glenohumeral j oint. 2. Partial width full-thickness tear critical zone infraspinatus 3. Degenerative SLAP tear superior labrum Signer Name: Dennis Duque MD Signed: 04/15/2022 3:33 PM Workstation Name: [id number]
== END 2022-04-15 10:27 | disposition home or self-care (01) ==
LOC: MRI 10:26
PROVIDERS: ATTEND Orthopaedic Surgery
DX: S43.431A Superior glenoid labrum lesion of right shoulder, initial encounter (principal); M75.121 Complete rotator cuff tear or rupture of right shoulder, not specified as traumatic; X58.XXXA Exposure to other specified factors, initial encounter; Y93.89 Activity, other specified; Y92.89 Other specified places as the place of occurrence of the external cause; Y99.8 Other external cause status

== ENCOUNTER 2022-05-30 09:55 | Outpatient (CLI) | payer BC ==
[2022-05-30 12:31] LABS: Basophils # (Auto) 0.1 K/mm3 (0.0-0.1); Eosinophils # (Auto) 0.1 K/mm3 (0.0-0.4); Eosinophils % (Auto) 1.6 % (0.0-4.3); Hematocrit 36.6 % (30.3-42.9); Hemoglobin 12.1 gm/dl (10.1-14.3); Lymphocytes # (Auto) 1.8 K/mm3 (1.2-5.4); Lymphocytes % (Auto) 29.6 % (13.4-35.0); Mean Corpuscular HGB Conc 33 % (30-34); Mean Corpuscular Volume 88 fl (79-97); Monocytes # (Auto) 0.4 K/mm3 (0.0-0.8); Monocytes % (Auto) 7.3 % (0.0-7.3); Platelet Count 299 K/mm3 (140-440); Red Blood Count 4.16 M/mm3 (3.65-5.03)
[2022-05-30 13:45] LABS: Alanine Aminotransferase 15 units/L (7-56); Albumin 4.8 g/dL (3.9-5); Blood Urea Nitrogen 15 mg/dL (7-17); Calcium 9.7 mg/dL (8.4-10.2); HDL Cholesterol 67 mg/dL (40-59); Hemolysis Index 9; LDL Cholesterol,Direct 132 mg/dL (50-130)
[2022-05-30 13:56] LABS: BUN/Creatinine Ratio 21
== END 2022-05-30 09:56 | disposition home or self-care (01) ==
LOC: LABHHL 09:55
PROVIDERS: ATTEND Internal Medicine
DX: Z00.00 Encounter for general adult medical examination without abnormal findings (principal); E03.9 Hypothyroidism, unspecified; E55.9 Vitamin D deficiency, unspecified; E78.5 Hyperlipidemia, unspecified; I10 Essential (primary) hypertension
CPT/HCPCS: 36415; 80053; 80061; 82306; 84443; 85025